=== PATIENT | male | born 1945 | race Two or more races ===

== ENCOUNTER → 2021-07-05 | Outpatient (CLI) | payer OTHER ==
--- NOTE | 2021-07-05 15:28 | RAD ---
EXAM: US RENAL BILAT 07/05/2021 9:08 AM INDICATION: Decreased renal function. COMPARISON: None available. TECHNIQUE: Grayscale and color Doppler ultrasound images of the kidneys and bladder FINDINGS: The right kidney measures 9.1 x 4.5 x 4.3 cm. No cortical thinning in the right kidney. Mildly increa sed echogenicity. No hydronephrosis. The left kidney measures 6.6 x 3.5 x 3.8 and is difficult to vis ualize. There is probable cortical thinning and increased echogenicity of the left kidney. No left hy dronephrosis. The urinary bladder is unremarkable. Right renal jet is visualized. No left renal to visualize. IMPRESSION: 1. Left renal atrophy. The left kidney is difficult to visualize. 2. Mild increased echogenicity of both kidneys consistent with medical renal disease. Electronically signed by: Pamela Moreira MD (07/05/2021 3:26 PM) [email or web address]
== END ==
LOC: US 09:42
PROVIDERS: ATTEND Family Medicine
DX: N26.1 Atrophy of kidney (terminal) (principal); N28.9 Disorder of kidney and ureter, unspecified
CPT/HCPCS: 76770

== ENCOUNTER 2021-11-09 17:01 | Emergency (ER) | payer BC, OTHER ==
[~2021-11-09] VITALS: Ht 175.3 cm; Wt 64.8 kg
[2021-11-09 17:10] VITALS: BP 127/63
--- NOTE | 2021-11-09 17:31 | PHYS DOC ---
Past Medical History Past Medical History: Asthma Past Surgical History: No Surgical History Alcohol Use: None Drug Use: None General Adult EDM: Chief Complaint: LOWER EXT PAIN HPI: HPI: Patient is a 76 year old male presents with right groin pain for the last few years. Patient states it happens intermittently its worse when he lifts heavy objects. Patient states that he will have pain in the laid down and pain will go away. Patient also states that he has been taking antacids which seem to help. Denies any nausea or vomiting. Denies any fevers or chills. Denies any change in his bowel habits. Denies any trauma to the area no pain with weightbearing. No decrease in range of motion. Review of Systems: Review of Systems: Constitutional: Denies fever or chills. [] Eyes: Denies change in visual acuity. [] HENT: Denies nasal congestion or sore throat. [] Respiratory: Denies cough or shortness of breath. [] Cardiovascular: Denies chest pain or edema. [] GI: Denies abdominal pain, nausea, vomiting, bloody stools or diarrhea. [] : Denies dysuria. [] Musculoskeletal: Right groin pain denies back pain or joint pain. [] Integument: Denies rash. [] Neurologic: Denies headache, focal weakness or sensory changes. [] Endocrine: Denies polyuria or polydipsia. [] Lymphatic: Denies swollen glands. [] Psychiatric: Denies depression or anxiety. [] Heart Score: C/O Chest Pain: No Risk Factors: Risk Factors: DM, Current or recent (<one month) smoker, HTN, HLP, family history of CAD, obesity. Risk Scores: Score 0 - 3: 2.5% MACE over next 6 weeks - Discharge Home Score 4 - 6: 20.3% MACE over next 6 weeks - Admit for Clinical Observation Score 7 - 10: 72.7% MACE over next 6 weeks - Early Invasive Strategies Allergies: Allergies: Allergies Coded Allergies Type Severity Reaction Last Updated Verified No Known Drug Allergies 11/09/21 No Physical Exam: PE: Constitutional: Well developed, well nourished, no acute distress, non-toxic appearance. HENT: Normocephalic, atraumatic, bilateral external ears normal, oropharynx moist, no oral exudates, nose normal. Eyes: PERRLA, EOMI, conjunctiva normal, no discharge. Neck: Normal range of motion, no tenderness, supple, no stridor. Cardiovascular:Heart rate regular rhythm, no murmur Lungs & Thorax: Bilateral breath sounds clear to auscultation Abdomen: Patient has a inguinal hernia on the right side that is reducible. Bowel sounds normal, soft, no tenderness, no masses, no pulsatile masses. Skin: Warm, dry, no erythema, no rash. Back: No tenderness, no CVA tenderness. Extremities: No tenderness, no cyanosis, no clubbing, ROM intact, no edema. Neurologic: Alert and oriented X 3, normal motor function, normal sensory function, no focal deficits noted. Psychologic: Affect normal, judgement normal, mood normal. Current Patient Data: Vital Signs: Vital Signs Date Time Temp Pulse Resp B/P (MAP) Pulse Ox O2 Delivery O2 Flow Rate FiO2 11/09/21 17:10 99.6 18 18 127/63 (84) 99 Room Air 99.6 EKG: EKG: [] Radiology/Procedures: Radiology/Procedures: [] Course & Med Decision Making: Course & Med Decision Making Pertinent Labs and Imaging studies reviewed. (See chart for details) [] Patient has a reducible right-sided inguinal hernia. Patient instructed not to have to lift heavy objects. Patient will need to follow-up with the general surgeon. Patient given strict return precautions discussed symptoms of an incarcerated hernia. Patient has verbalized understanding Dragon Disclaimer: Sejal Disclaimer: This electronic medical record was generated, in whole or in part, using a voice recognition dictation system. Departure Departure Referrals: EV HERNANDEZ MD (PCP) RONAL MAYORGA DO Nov 09, 2021 17:31
[2021-11-09] MEDS ORDERED: ACET325T9 PO (17:34)
== END 2021-11-09 17:39 | disposition home or self-care (01) ==
LOC: ER 17:01
DX: K40.90 Unilateral inguinal hernia, without obstruction or gangrene, not specified as recurrent (principal); J45.909 Unspecified asthma, uncomplicated
CPT/HCPCS: 99281